=== PATIENT | female | born 1960 | race Caucasian/White ===

== ENCOUNTER 2016-08-26 12:40 | Emergency (ER) | payer BC ==
[~2016-08-26] VITALS: Ht 162.6 cm; Wt 55.6 kg
[2016-08-26 12:42] VITALS: TEMP 36.4; Ht 162.6 cm; Wt 55.6 kg
[2016-08-26] MEDS ORDERED: LEVO100T7 PO (12:50)
[2016-08-26] MEDS ORDERED: METO25TA3 PO (12:50)
[2016-08-26] MEDS ORDERED: HYDROCODONE/ACETAMOPHEN 5/325MG TAB PO ONE (13:00)
--- NOTE | 2016-08-26 13:30 | DIAGNOSTIC IMAGING REPORT ---
HEAD CT NONCONTRAST CT DOSE: 902.95 mGy.cm HISTORY: pain s/p fall TECHNIQUE: Multiaxial CT images of the head were performed without the use of intravenous contrast. Automated exposure control was utilized for this study. Comparison: None. Findings: The paranasal sinuses and mastoid air cells are clear. The calvarium and skull base are intact. The ventricles and sulci are within normal limits. There is no mass, hematoma, midline shift, or acute infarct. Impression: No acute intracranial abnormality. Electronically signed by: Miguel Schwarz M.D. 08/26/2016 1:28 PM Dictated Date/Time: 08/26/2016 1:25 PM
--- NOTE | 2016-08-26 13:33 | DIAGNOSTIC IMAGING REPORT ---
CERVICAL SPINE CT CT DOSE: HISTORY: pain s/p fall TECHNIQUE: Multiaxial CT images of the cervical spine were performed and reformatted in the sagittal and coronal plane without the use of contrast. COMPARISON: None. FINDINGS: Straightening of the cervical spine. 1 mm of retrolisthesis of C4 on C5 and C5 on C6 is likely due to the long-standing degenerative change. Moderate disc space narrowing and endplate osteophytes seen from C4 through C6. Prevertebral soft tissues and the C1-C2 interval are intact. IMPRESSION: No fractures within the cervical spine. Electronically signed by: Miguel Schwarz M.D. 08/26/2016 1:31 PM Dictated Date/Time: 08/26/2016 1:28 PM
--- NOTE | 2016-08-26 13:36 | DIAGNOSTIC IMAGING REPORT ---
MAXILLOFACIAL CT CT DOSE: HISTORY: facial injury s/p fall TECHNIQUE: Multiaxial CT images of the maxillofacial region were performed and reformatted in the coronal plane without the use of contrast. COMPARISON: None. FINDINGS: The visualized cervical spine, skull base, pterygoid plates, nasal bones, lamina papyracea, orbital floors, mandible, and zygomatic arches are intact. No fractures. The orbits are unremarkable. IMPRESSION: No fractures within the maxillofacial region. Electronically signed by: Miguel Schwarz M.D. 08/26/2016 1:34 PM Dictated Date/Time: 08/26/2016 1:31 PM
[2016-08-26] MEDS ORDERED: HYDR-5688 PO (13:47)
--- NOTE | 2016-08-26 13:48 | EMERGENCY ROOM VISIT NOTE ---
History First contact with patient: 12:44 Chief Complaint: FALL Stated Complaint: SPINAL STENOSIS,TINGLING,RT NUMBNESS,BROKEN TEETH History of Present Illness The patient is a 56 year old female who presents to the Emergency Department by private vehicle for evaluation of her facial injury. The patient reports that she tripped on a curb today causing her to fall forward. She was unable to catch herself. She reports pain to her face and teeth. She reports dental fractures. She denies any prefall dizziness, lightheadedness, chest pain, or shortness of breath. She reports that she simply tripped. She rates her current discomfort as 3/10. She reports history of cervical degenerative disc disease. She complains of some pain and tingling to the RIGHT arm as well. The patient denies any headaches, blurry vision, double vision, chest pain, palpitations, shortness of breath, abdominal pain, or low back pain, or extreme any pain. She does not utilize blood thinners. Review of Systems A complete 10-point Review of Systems was discussed with the patient, with pertinent positives and negatives listed in the History of Present Illness. All remaining Review of Systems questions can be considered negative unless otherwise specified. Social History Smoking Status: Never Smoker Smokeless Tobacco Use: No Drug Use: none Housing Status: lives with family Occupation Status: employed Current/Historical Medications Scheduled Levothyroxine Sodium (Levothyroxine Sodium), 100 MCG PO QAM Metoprolol Succ (Toprol Xl) (Toprol-Xl), 25 MG PO HS Scheduled PRN Hydrocodone/Acetaminophen 5MG/325MG ([place] 5MG/325MG), 1-2 TABLET PO Q4H PRN for Pain Allergies Coded Allergies: Erythromycin (Unverified Allergy, Unknown, NAUSEA, 08/26/16) Physical Exam Vital Signs Date Time Temp Pulse Resp B/P Pulse Ox O2 Delivery O2 Flow Rate FiO2 08/26/16 14:08 87 18 127/93 98 08/26/16 12:42 36.4 100 18 156/97 98 Room Air Pain Rating (0-10): 3 Physical Exam VITAL SIGNS - Vital signs and nursing notes were reviewed. GENERAL - 56-year-old female appearing her stated age. Communicates well with provider and answers questions appropriately. HEAD - Normocephalic, Atraumatic. No Ramon's Sign or Raccoon's Eyes. No depressed skull fractures palpable. EYES - PERRL with EOMI bilaterally. Without subconjunctival hemorrhage. Palpebral conjunctiva pink and moist with no injection. EARS - No deformities of external structures noted on gross examination bilaterally. No hemotympanum present. No tympanic perforation noted. Handle of malleus, umbo, cone of light, pars tensa/flaccid all easily visualized. NOSE - Midline and without cyanosis. No epistaxis or clear watery discharge noted. Septum midline without deviation. No septal hematoma noted. No overlying ecchymosis noted. MOUTH/OROPHARYNX - Without perioral cyanosis. Tongue midline with equal elevation of palate bilaterally. No blood noted in the oropharynx. No tonsillar hypertrophy, erythema, or exudates noted. Fractures to the bilateral canine teeth and bilateral front teeth. NECK - FROM assessed. No nuchal rigidity. No tenderness to palpation over the cervical spinous processes. Mild cervical paraspinal muscle tenderness noted. LUNGS - Chest wall symmetric without accessory muscle use, intercostals retractions, or central cyanosis. Normal vesicular breath sounds CTA B/L. No wheezes, rales, or rhonchi appreciated. CARDIAC - RRR with S1/S2. No murmur, rubs, or gallops appreciated. EXTREMITIES - No gross deformities noted of the extremities. +3/5 radial and dorsalis pedis pulses palpated throughout. FROM with no tremors, fasciculations , or clonus noted on PROM throughout. +5/5 strength noted in UE/LE bilaterally. NEUROLOGIC - Cranial nerves II through XII grossly intact. Sensory intact to light touch throughout. PSYCH - A&Ox3 and cooperates fully with examiner. Pt is very pleasant and interacts well with examiner. Medical Decision & Procedures ER Provider Diagnostic Interpretation: Radiological imaging and reports were reviewed by myself. Radiologist's Interpretation as follows: MAXILLOFACIAL CT CT DOSE: HISTORY: facial injury s/p fall TECHNIQUE: Multiaxial CT images of the maxillofacial region were performed and reformatted in the coronal plane without the use of contrast. COMPARISON: None. FINDINGS: The visualized cervical spine, skull base, pterygoid plates, nasal bones, lamina papyracea, orbital floors, mandible, and zygomatic arches are intact. No fractures. The orbits are unremarkable. IMPRESSION: No fractures within the maxillofacial region. HEAD CT NONCONTRAST CT DOSE: 902.95 mGy.cm HISTORY: pain s/p fall TECHNIQUE: Multiaxial CT images of the head were performed without the use of intravenous contrast. Automated exposure control was utilized for this study. Comparison: None. Findings: The paranasal sinuses and mastoid air cells are clear. The calvarium and skull base are intact. The ventricles and sulci are within normal limits. There is no mass, hematoma, midline shift, or acute infarct. Impression: No acute intracranial abnormality. CERVICAL SPINE CT CT DOSE: HISTORY: pain s/p fall TECHNIQUE: Multiaxial CT images of the cervical spine were performed and reformatted in the sagittal and coronal plane without the use of contrast. COMPARISON: None. FINDINGS: Straightening of the cervical spine. 1 mm of retrolisthesis of C4 on C5 and C5 on C6 is likely due to the long-standing degenerative change. Moderate disc space narrowing and endplate osteophytes seen from C4 through C6. Prevertebral soft tissues and the C1-C2 interval are intact. IMPRESSION: No fractures within the cervical spine. Medications Administered Medications (Trade) Dose Ordered Sig/Ngoc Route Start Time Stop Time Status Last Admin Dose Admin Acetaminophen/ Hydrocodone Bitart ([place] 5/325 Tab) 1 tab NOW ONCE PO 08/26/16 13:00 08/26/16 13:01 DC 08/26/16 13:00 1 TAB ED Course Patient was seen and evaluated by myself. Patient was provided one [place] for pain. CT of the head, cervical spine, and facial bones were obtained. Imaging results above. Imaging results were reviewed with the patient who acknowledges understanding. The patient was encouraged to follow-up with her dentist upon returning home. She was educated on worrisome symptoms for return visit to the emergency department. Patient discharged home in good condition. Medical Decision Given the patient's presentation and stated complaints, I did elect to perform the above-mentioned workup. The patient presents today after sustaining a fall with dental fractures. She has history of cervical disc disease. She has no neurological findings on exam. CT the head, facial bones, and cervical spine are all unremarkable. Patient was provided pain medication for her dental fractures. She'll follow-up with the dentist from today's visit. There is no instability to teeth or need for splinting. She will return to the emergency department in the setting of any changing or worsening symptoms. Patient discharged home in good condition. In the evaluation and treatment of this patient, the following differential diagnoses were considered: Concussion, Contrecoup Injury, Brain Tumor, Depression, Encephalitis, Hypothyroidism, Meningitis, CVA, TIA, Migraine, Cluster Headache, Intracranial Abnormality, Intracranial Hemorrhage, Subdural Hematoma, Subarachnoid Hemorrhage, Hydrocephalus. Impression Primary Impression: Broken teeth Additional Impressions: Facial injury Fall Departure Information Dispostion Home / Self-Care Condition GOOD Prescriptions Hydrocodone/Acetaminophen 5MG/325MG ([place] 5MG/325MG) Tab 1-2 TABLET PO Q4H Y for Pain, #20 TAB For Initial Treatment Prov: Tone Askew PA-C 08/26/16 Referrals No Doctor, Assigned (PCP) Patient Instructions [facility] Additional Instructions You've been seen in the emergency department today for dental fractures sustained after a fall. Please follow-up with your dentist in the next 24-48 hours for definitive management. You have been prescribed [place] to be used for pain control. This is a narcotic medication. You cannot drive or consume alcohol while on this medicine. This medicine should only be used for pain that cannot be controlled with over-the- counter pain medicines. For pain control, you can use the following [id number] medicines (if >12 yo): - Regular strength (325mg/tab) Tylenol (acetaminophen) 2 tabs every 4-6 hours as needed. Do not exceed 12 tablets in a 24 hour period. Avoid taking more than 4 grams (4000 mg) of Tylenol per day. This includes any other sources of acetaminophen you may take on a regular basis. - Regular strength (200 mg/tab) Advil (ibuprofen) 1-2 tabs every 4-6 hours as needed. Do not exceed a dose of 3200 mg per day. Follow-up with your primary care provider as needed. Return for any changing or worsening symptoms. Problem Qualifiers Primary Impression: Broken teeth Encounter type: initial encounter Fracture type: closed Qualified Codes: S02.5XXA - Fracture of tooth (traumatic), initial encounter for closed fracture Additional Impressions: Facial injury Encounter type: initial encounter Qualified Codes: S09.93XA - Unspecified injury of face, initial encounter Fall Encounter type: initial encounter Qualified Codes: W19.XXXA - Unspecified fall, initial encounter
[2016-08-26 14:08] VITALS: BP 127/93; PULSE 87; O2SAT 98
== END 2016-08-26 14:10 | disposition home or self-care (01) ==
LOC: C.EDB 12:41 → C.EDD 14:10
DX: S02.5XXA Fracture of tooth (traumatic), initial encounter for closed fracture (principal); W01.0XXA Fall on same level from slipping, tripping and stumbling without subsequent striking against object, initial encounter; Y92.89 Other specified places as the place of occurrence of the external cause; Z79.899 Other long term (current) drug therapy